=== PATIENT | male | born 1945 | race Caucasian/White ===

== ENCOUNTER 2016-08-03 02:35 | Observation (INO) | payer MEDICARE, BC ==
--- NOTE | 2016-08-03 03:48 | ED ---
Yulissa Rendon Rebecca, scribed for Marty Larson on 08/03/16 at 0320 . Neurological HPI - HPI Summary HPI Summary: Stroke scale 0 Exam: nl, hai neuro Pt is a 71 y/o M transferred from [facility] who presents to [facility] c/o acute on chronic L-sided weakness. He reports that since his TIA in 2004, he chronically experiences L-sided weakness. Sx worsened gradually and intermittently in the last week, particularly in the last 3 days. Sx aggravated and alleviated by nothing. Additionally c/o spells of dizziness and unsteady gait for the last 3 days. Most recent episode of unsteady gait began this morning upon waking up. C/o facial droop and slurred speech intermittently, beginning at 1230 today. Last episode occurred at [place] ED and lasted for approximately 15 minutes. Resolved spontaneously while en route to CT scan. Pt is currently asymptomatic. - History of Current Complaint Chief Complaint: EDNeurologicalDeficit Stated Complaint: XFER FROM [facility] Hx Obtained From: Patient, Family/Automation Test Developer - Onset/Duration: Gradual Onset, Started weeks ago - 1 week ago, Worse Since - 3 days ago Timing: Intermittent Episodes Lasting: - 15 minutes Pain Intensity: 0 Pain Scale Used: 0-10 Numeric Character: Dizzy, Motor Weakness - L-sided weakness, Impaired Speech, Other: - Unsteady gait, facial droop Aggravating: Nothing Alleviating: Spontanious Resolution Associated Signs and Symptoms: Positive: Weakness - L-sided weakness, Dizziness - Allergy/Home Medications Allergies/Adverse Reactions: Allergies Allergy/AdvReac Type Severity Reaction Status Date / Time Sulfa Antibiotics Allergy Hives Verified 08/03/16 02:55 PMH/Surg Hx/FS Hx/Imm Hx - Immunization History Date of Tetanus Vaccine: utd Date of Influenza Vaccine: none Infectious Disease History: No Infectious Disease History: Denies: Traveled Outside the [place] in Last 30 Days - Social History Alcohol Use: Rare Substance Use Type: Reports: None Smoking Status (MU): Former Smoker Review of Systems Constitutional: Negative Eyes: Negative ENT: Negative Cardiovascular: Negative Respiratory: Negative Gastrointestinal: Negative Genitourinary: Negative Musculoskeletal: Negative Skin: Negative Neurological: Other - Unsteady gait, dizziness, facial droop Positive: Weakness - L-sided weakness, Slurred Speech Psychological: Normal All Other Systems Reviewed And Are Negative: Yes Physical Exam Triage Information Reviewed: Yes Vital Signs On Initial Exam: Initial Vitals Temp Pulse Resp BP Pulse Ox 98.3 F 74 14 149/67 96 08/03/16 02:50 08/03/16 02:50 08/03/16 02:50 08/03/16 02:50 08/03/16 02:50 Vital Signs Reviewed: Yes Appearance: Positive: Well-Appearing, No Pain Distress Skin: Positive: Warm, Skin Color Reflects Adequate Perfusion, Dry Head/Face: Positive: Normal Head/Face Inspection Eyes: Positive: EOMI, KIMMIE Neck: Positive: Supple, Nontender Respiratory/Lung Sounds: Positive: Clear to Auscultation, Breath Sounds Present Cardiovascular: Positive: RRR, Pulses are Symmetrical in both Upper and Lower Extremities Abdomen Description: Positive: Nontender, Soft Bowel Sounds: Positive: Present Musculoskeletal: Positive: Normal, Strength/ROM Intact Neurological: Positive: Normal, Sensory/Motor Intact, Alert, Oriented to Person Place, Time. Negative: Facial Droop, Pronator Drift Present - Carol Coma Scale Coma Scale Total: 15 Diagnostics - Vital Signs Vital Signs Temp Pulse Resp BP Pulse Ox 08/03/16 02:50 98.3 F 74 14 149/67 96 - Laboratory Lab Statement: Any lab studies that have been ordered have been reviewed, and results considered in the medical decision making process. NIH Scale - NIH Scale Level of Consciousness: Alert/Keenly Responsive Ask Patient the Month and His/Her Age: Both Correct Ask Pt to Open/Close Eyes and Cook Manager/Release Non-Paretic Hand: Both Correctly Best Gaze (Only Horizontal Eye Movement): Normal Visual Field Testing: No Visual Loss Facial Paresis-Pt to Smile & Close Eyes or Grimace Symmetry: Normal/Symmetrical Motor Function - Right Arm: No Drift-Holds 10 Seconds Motor Function - Left Arm: No Drift-Holds 10 Seconds Motor Function - Right Leg: No Drift-Holds 10 Seconds Motor Function - Left Leg: No Drift-Holds 10 Seconds Limb Ataxia-Must be out of Proportion to Weakness Present: Absent Sensory (Use Pinprick to Test Arms/Legs/Trunk/Face): Normal Best Language (Describe Picture, Name Items): No Aphasia Dysarthria (Read Several Words): Normal Extinction and Inattention: No Abnormality Total Score: 0 Course/Dx - Course Assessment/Plan: Pt was transferred from [place] for L-sided weakness. He received an MRI and CT. TPA was not given. Symptoms resolved CATERING AND EVENTS MANAGER. Examination revealed findings within normal limits and an NIH stroke scale of 0. Pt will be admitted to hospitalist services with a Dx of TIA. - Diagnoses Provider Diagnoses: TIA (transient ischemic attack) - Physician Notifications Discussed Care of Patient With: Dr. Lopez, hospitalist, who accepts pt for admission. Time Discussed With Above Provider: 03:25 Discharge - Discharge Plan Condition: Good Disposition: ADMITTED TO [facility] documentation as recorded by the Yulissa vizcaino Rebecca accurately reflects the service I personally performed and the decisions made by , Marty Larson.
[2016-08-03] MEDS ORDERED: Enoxaparin(*) 40 MG/0.4 ML SYR SUBCUT SCH (05:00)
[2016-08-03] MEDS ORDERED: Dextrose 50% Syringe 50 ML* 25 GM/50 ML SYRINGE IV PUSH PRN (06:14)
[2016-08-03 06:50] LABS: Hematocrit 35 % (42-52); Mean Corpuscular HGB Conc 34 g/dl (31-36); Mean Corpuscular Hemoglobin 31 pg (27-31); Mean Corpuscular Volume 92 fL (80-94); Mean Platelet Volume 9 um3 (7.4-10.4); Red Blood Count 3.85 10^6/ul (4.0-5.4); Red Cell Distribution Width 14 % (10.5-15); White Blood Count 9.1 10^3/ul (3.5-10.8)
[2016-08-03] MEDS: Insulin LISPRO* 1 UNITS UNIT SUBCUT SCH ×2 (08:04→12:16)
[2016-08-03] MEDS: Repaglinide TAB* 1 MG PO SCH ×2 (08:16→12:18)
[2016-08-03] MEDS ORDERED: Folic Acid TAB* 1 MG PO SCH (09:00)
[2016-08-03] MEDS ORDERED: Aspirin EC TAB* 325 MG PO SCH (09:00)
[2016-08-03] MEDS ORDERED: Clopidogrel TAB* 75 MG PO SCH (09:00)
[2016-08-03] MEDS ORDERED: Metoprolol Succinate XL TAB* 100 MG PO SCH (09:00)
[2016-08-03] MEDS ORDERED: metFORMIN* 1,000 MG TAB PO SCH (09:00)
[2016-08-03] MEDS ORDERED: Hydrochlorothiazide TAB* 25 MG PO SCH (09:00)
[2016-08-03] MEDS ORDERED: CMC:SitaGLIPtin (NF) 100 MG TAB PO SCH (09:00)
[2016-08-03] MEDS ORDERED: Cyanocobalamin TAB* 500 MCG PO SCH (09:00)
--- NOTE | 2016-08-03 10:31 | CONSULT ---
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 They cannot think of any precipitating factor; he has had a dozen or more episodes total. One occurred after eating a meal and before dessert; he has never checked his sugar during them; his checked a manual BP during 2 episodes (SBP 150s once, 190s other time). He was nauseated once or twice, and clammy several times. With some of the episodes he had slurred speech and/or left sided imbalance or drift and/or left facial asymmetry (she checked his arms). With several of the episodes he had urinary urgency, without incontinence or dysuria. He is on ASA at baseline; he saw his primary docs PA for these episodes, had Plavix empirically added, and had an echo/holter on 07/25 (former results unknown ), then an mri on 08/02 (with several more episodes in between test being ordered and performed). He went to [place] ED overnight for these episodes, was intermittently hypertensive there (SBPs to 190s) and was transferred to [facility]. There was consideration of TPA as he had an episode while there, but he normalized in the CT scanner; he was given one time labetalol. 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 Plantar responses are equivocal to flexor Coordination: finger to nose is subtly dysmetric left Gait: casual gait narrow based most of time; at times when turning will veer or tip to left and adjust Serologies: CBC, trop are all normal or negative; chem, LFTs, CBC were all nl at [place] Priors: none Imaging: - 08/02/16 brain mri and 08/03/[address] both at [place] negative per report vs 12/03 [facility] brain mri per report had acute right thalamic stroke - 07/26/16 CUS also negative per report Impression: 71 yo HTN, DM, remote right thalamic stroke with residual left sided sensory asymmetry, presenting with multiple subacute onset recurrent episodes of global (clamminess, nausea, imbalance) and/or left sided (balance, facial asymmetry) episodes, with several sets of imaging studies negative for any acute flexible shaft winder vascular process and clean carotids. He has no history of afib; he is on tele. His current exam has subtle left hand dysmetria and left sided unsteadiness, presumably reflecting sequalae of his remote stroke. Despite lack of bilateral distal sensory complaints, given his leg hyporeflexia and foot exam changes, it would not surprise me if he has baseline diabetic neuropathy, with some baseline gait impairment. The largely stereotypic and recurrent nature of the events makes me more concerned for a systemic process that may be exacerbating remote stroke related deficits, eg HTN urgency, hypoglycemia (values when symptomatic unknown), possibly UTI (had at least urgency several times). We discussed the importance of intermission coordinator glycemic and BP control, having a glucometer. There is no clear role here for dual anti platelet therapy and he can return to baseline ASA use. Save tele monitoring, obtaining his recent echo report on general principle and checking his urine and aic, there are no other acute recs, and he can likely be discharged soon. We discussed his imaging reports.
[2016-08-03 12:00] VITALS: BP 154/69
[2016-08-03 12:13] LABS: Urine Bacteria Absent (Absent); Urine Bilirubin Negative (Negative); Urine Glucose 1+(50 mg/dL) (Negative); Urine Nitrite Negative (Negative)
--- NOTE | 2016-08-03 14:15 | PN ---
Subjective Date of Service: 08/03/16 Interval History: Mr. Gray denies complaint at this point. He specifically denies unsteadiness. He has chronic numbness on the left side of his body since his previous stroke. He denies chest pain, SOB, nausea, or abdominal pain. Objective Active Medications: Aspirin (Ecotrin Ec Tab*) 325 mg PO DAILY [facility] Clopidogrel Bisulfate (Plavix Tab*) 75 mg PO DAILY [facility] Cyanocobalamin (Vitamin B12 Tab*) 500 mcg PO DAILY [facility] Dextrose (D50w Syringe 50 Ml*) 12.5 gm IV PUSH .FOR FS < 60 - SS PRN Enoxaparin Sodium (Lovenox(*)) 40 mg SUBCUT Q24H [facility] Folic Acid (Folvite Tab*) 1 mg PO DAILY [facility] Hydrochlorothiazide (Hydrodiuril Tab*) 25 mg PO DAILY [facility] Insulin Human Lispro (Humalog*) 0 units SUBCUT ACHS [facility] Losartan Potassium (Cozaar Tab*) 150 mg PO BEDTIME [facility] Metformin HCl (Glucophage*) 1,000 mg PO BID [facility] Metoprolol Succinate (Toprol Xl Tab*) 200 mg PO DAILY [facility] Repaglinide (Prandin Tab*) 2 mg PO AC [facility] Sitagliptin Phosphate (Januvia (Nf)) 100 mg PO DAILY [facility] Vital Signs 08/03/16 08/03/16 08/03/16 04:30 05:00 05:40 Temperature 98.1 F Pulse Rate 72 73 78 Respiratory 14 15 17 Rate Blood Pressure 142/68 150/64 156/75 (mmHg) O2 Sat by Pulse 97 96 96 Oximetry 08/03/16 08/03/16 08/03/16 06:00 08:00 11:38 Temperature 98.1 F 98.1 F 98.4 F Pulse Rate 78 74 74 Respiratory 17 14 18 Rate Blood Pressure 156/75 156/77 154/69 (mmHg) O2 Sat by Pulse 96 97 97 Oximetry Oxygen Devices in Use Now: None Appearance: Male sitting up on edge of bed in NAD Respiratory: Symmetrical Chest Expansion and Respiratory Effort, Clear to Auscultation Cardiovascular: NL Sounds; No Murmurs; No JVD, No Edema Abdominal: NL Sounds; No Tenderness; No Distention Extremities: No Edema Skin: No Rash or Ulcers Neurological: Alert and Oriented x 3, NL Muscle Strength and Tone Nutrition: Taking PO's Result Diagrams: 08/03/16 06:03 Assess/Plan/Problems-Billing Assessment: Mr. Gray is a 71 yo male with a PMH of stroke, htn, and diabetes who was admitted on 08/02/16 with recurrent episodes of unsteadiness with concern for CVA/ TIA. - Patient Problems (1) Unsteadiness on feet Comment: Appreciate consultation from neurology. No evidence of acute neurologic deficit or TIA/CVA. MRI brain at [facility] showed non- specific demylenization per report on 08/02/16. Recommend to continue aspirin. No evidence of other inciting phenonema such as infection, electrolyte abnormality, hypo-hypertension, or hypo-hyperglycemia. (2) Diabetes Comment: BGs 120-240s. Metformin and sitagliptin. Patient does not follow BGs at home, question if low blood sugar could be causing unsteadiness. Plan to prescribe glucometer. (3) Hypertension Comment: SBP 150s. Continue hctz, losartan, metoprolol. (4) History of CVA (cerebrovascular accident) Comment: Continue asa, no indication for plavix per neurology. Status and Disposition: OBV. Discharge to home.
--- NOTE | 2016-08-03 16:11 | HP ---
CC: Dr. Harvey in [place] ADMISSION HISTORY AND PHYSICAL: DATE OF ADMISSION: 08/03/16 CHIEF COMPLAINT: Difficulty walking. HISTORY OF PRESENT ILLNESS: Mr. Ledezma is a 71-year-old man with history of stroke in 2004 with some residual left-sided weakness and numbness. The patient presented to the [facility] Emergency Department overnight complaining of 3 weeks of episodic burning in the eyes, dizziness, difficulty walking associated with slurred speech, disorientation and some "belligerence" according to his . These episodes have occurred multiple times per day in the last few days and less often in the first few weeks. They are not associated with hypoglyemia and tend to last about 15 minutes and will resolve completely. However, in the last 3 days, the patient has had some persistent trouble with balance and walking and this led to the emergency room visit. He denies focal weakness in the left or right arms or legs. He has not fallen. Prior to 3 weeks ago, these episodes did not occur at all. The patient denies any headaches. The patient did see primary care about these issues and had a carotid Doppler on July 25, which was negative. He also reports having echocardiogram, but the results are unknown. He had MRI done as an outpatient today at [facility] just prior to going to the emergency department. The patient presented to [place] [facility] department with these above symptoms. Neurology consultation was desired and so the patient was transferred to [facility] emergency department for admission and neurology consult. PAST MEDICAL HISTORY: Includes type 2 diabetes and hypertension. PAST SURGICAL HISTORY: Vasectomy. MEDICATIONS ON ADMISSION: 1. Prandin 2 mg p.o. q.a.c. 2. Vitamin B12 500 mcg p.o. daily. 3. Plavix 75 mg p.o. daily. 4. Folic acid 1 mg p.o. daily. 5. Hydrochlorothiazide 25 mg p.o. q.a.m. 6. Cozaar 150 mg p.o. q.p.m. 7. Toprol-XL 200 mg p.o. daily. 8. Multivitamin 1 tab p.o. daily. 9. Januvia 100 mg p.o. daily. 10. Metformin 1000 mg p.o. b.i.d. ALLERGIES: SULFA. SOCIAL HISTORY: He is retired. 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 He is . He has 2 children. His is his healthcare proxy. He quit tobacco 30 or 40 years ago. He drinks alcohol rarely. No recreational drugs. FAMILY HISTORY: Unknown because he is adopted. REVIEW OF SYSTEMS: The patient denies any fevers, weight loss, or anorexia. The patient denies any chest pain or palpitations. The patient denies any cough or shortness of breath. The patient reports that he had vomiting few times when he had the episodes of dizziness. This has only happened the first few times. Remainder of the 14 point review of systems was negative other than that mentioned in the HPI. PHYSICAL EXAMINATION GENERAL: He is alert, in no acute distress. VITAL SIGNS: Temperature is 36.3, pulse 74, respirations 15, blood pressure is 142/68, O2 sats 96%. HEENT: Head is normocephalic, atraumatic. Sclerae anicteric. Pupils are equal , round, reactive to light, and accommodation. Oropharynx is moist. No lesions. NECK: No JVD. No carotid bruit. No thyromegaly. LUNGS: Clear to auscultation and percussion bilaterally. HEART: Regular rate and rhythm without murmurs or gallops. ABDOMEN: Soft and nontender. Positive bowel sounds. No hepatosplenomegaly. EXTREMITIES: No peripheral edema. Dorsalis pedis pulses are 1+ bilaterally. NEUROLOGIC: Cranial nerves II through XII are intact. Motor strength is 5/5 throughout upper and lower extremities. Deep tendon reflexes are 1+ and symmetric. There is no wonmgh-sdea-vzusol dysmetria. There is no heel-arnett dysmetria. There is no cogwheeling bilaterally upper extremities. He is alert and oriented x3. DIAGNOSTIC STUDIES/LAB DATA: Sodium 139, potassium 3.6, chloride 103, bicarb 23, BUN 17, creatinine 1.2, glucose 171, calcium 9.3. White count 8.7, hemoglobin 13.4, hematocrit 38.9, platelets 178. EKG, normal sinus rhythm. No ischemic ST or T-wave changes on telemetry. While he was here in the [facility], he had 1 episode of regular narrow complex SVT with a heart rate of around of 150 without symptoms consistent with AV brianna reentrant tachycardia. Head CT was negative. MRI of the brain was negative except for atrophy. ASSESSMENT AND PLAN: A 71-year-old man presenting with episodic difficulties with coordination as well as other neurologic findings such as slurred speech, disorientation, and dizziness. The differential here would include transient ischemic attack, seizures, atypical migraines. The whole syndrome was quite unusual and may represent some kind of somatic disorder. The patient will be admitted to observation and have neurology consult in the morning. We will continue with aspirin and Plavix for now. The stereotypical episodes do appear more like a seizure or migraine and as a TIA, would not follow the same pattern , went over again. The patient may benefit from starting on Keppra or Depakote. 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 The patient will have to have an echocardiogram or we can obtain the other one from [place]. He may benefit from having a calcium channel sylvie to his beta-sylvie, but at this point, this is asymptomatic and would not cause stroke symptoms. Code status is full. He will have subcutaneous Lovenox while he is in the hospital to prevent DVT as he is at high risk. For diabetes, we will continue on his oral home medications and have sliding scale insulin and fingersticks while he is here in the hospital. [id number]/[facility] #: [id number] F F THOMPSON HOSPITALAndrew
[2016-08-03] MEDS ORDERED: Losartan TAB* 25 MG PO SCH (21:00)
--- NOTE | 2016-08-04 04:21 | DS ---
HOSPITAL MEDICINE DISCHARGE SUMMARY: DATE OF ADMISSION: 08/02/16 DATE OF DISCHARGE: 08/03/16 PRIMARY CARE PHYSICIAN: Monty Chirinos MD ATTENDING PHYSICIAN: DO Preeti Duff(dictation provided by Oksana Barrera NP) PRIMARY DIAGNOSIS: Unsteadiness, unclear etiology. SECONDARY DIAGNOSES: 1. History of cerebrovascular accident. 2. Type 2 diabetes, [id number]. 3. Hypertension. 4. Kidney stones. 5. History of vasectomy. 6. History of stroke. MEDICATIONS AT THE TIME OF DISCHARGE: 1. Multivitamin with mineral 1 tablet p.o. daily. 2. Folic acid 1 mg p.o. daily. 3. Hydrochlorothiazide 25 mg p.o. daily. 4. Losartan 150 mg p.o. at bedtime. 5. Metoprolol succinate 200 mg p.o. daily. 6. Prandin 2 mg p.o. q.a.c. 7. Sitagliptin 100 mg p.o. daily. 8. Vitamin B12 500 mcg p.o. daily. 9. Metformin 1000 mg p.o. b.i.d. 10. Aspirin 325 mg p.o. daily. The patient is to stop Plavix. HOSPITAL COURSE: Mr. Gray is a 71-year-old male with past medical history of remote diagnosis of stroke with residual left-sided numbness as well as diabetes and hypertension who presented to the hospital from [facility] on 08/02/16 with complaint of recurrent episodes of unsteadiness. Mr. Gray has been having episodes where he feels unsteady on his feet and drifts to the left over the past couple of weeks. For this, he has seen his primary care physician digital marketing assistant who did order Carotid Dopplers, MRI of the brain, and transthoracic echocardiogram. Per the report from the patient, the Doppler study and the echocardiogram showed no acute abnormality. He did, on MRI of the brain have, what was described as punctate area of increased T2 and inversion recovery signal noted in the cerebral white matter with differential consideration and include multiple sclerosis, chronic microvascular ischemic changes, Lyme disease, and vasculitis. The patient went to [facility], reported the complaint of this unsteadiness and after review of the record and workup there, it was determined that he did need a neurology consultation, which was not available at [place] and therefore he was transferred to [facility]. Mr. Ledezma was seen in consultation by Dr. Vogel today who reviewed the record and assessed the patient. His impression is that the symptoms he was having were not concerning for new TIA or CVA or other neurological impairment. He suspects that the symptoms were related to possible uncontrolled hypertension or hypo- or hyperglycemia. This maybe exacerbating the symptoms of his previous stroke. While here in the hospital, the patient's blood pressure has been well controlled and his blood glucose has been running between 120s and 240s. The patient does not know his past hemoglobin A1c. The patient does not check his blood sugar at home that would be possibly amenable to starting to do so and I will provide him with a glucometer. I think it will be important for the patient to check his blood glucose when he is having one of these episodes to see if perhaps that his glucose abnormalities are contributing to his symptoms. He also does have a blood pressure cuff and I have asked him to check his BP if he does have unsteadiness as well. Mr. Gray has been seen by Dr. Vogel today which was the purpose of this admission and there is no other workup indicated. The patient had been started on Plavix in addition to the aspirin by his outpatient provider. Dr. Vogel suggests if there is no indication for that, then he should continue on aspirin only. DISPOSITION: To home. DIET: Consistent carbohydrate and low salt. ACTIVITY: As tolerated. FOLLOWUP PLANS: Please follow up with Dr. hCirinos. The patient is asked to call on Friday for an appointment. TIME SPENT: Approximately minutes was spent in the discharge of this patient, more than half of the time was spent with the patient at the bedside reviewing the events leading up to this hospitalization, performing the physical examination, and reviewing my plan of care. OKSANA BARRERA NP CC: Dr. Chirinos* [id number]/[facility] #: [id number] MTDAndrew
== END 2016-08-03 15:30 | disposition home or self-care (01) ==
LOC: ED 02:35 → MEDTELE 04:18
PROVIDERS: ADMIT Internal Medicine; ATTEND Hospitalist
DX: R26.81 Unsteadiness on feet (principal); E11.9 Type 2 diabetes mellitus without complications; I69.354 Hemiplegia and hemiparesis following cerebral infarction affecting left non-dominant side; Z87.442 Personal history of urinary calculi; Z79.82 Long term (current) use of aspirin; Z79.899 Other long term (current) drug therapy; Z79.84 Long term (current) use of oral hypoglycemic drugs; Z79.02 Long term (current) use of antithrombotics/antiplatelets; Z87.891 Personal history of nicotine dependence; Z88.2 Allergy status to sulfonamides
CPT/HCPCS: 36415; 81003; 81015; 84484; 85025; 87086; 96372; 99284; A9270-GY; G0378; J1650